=== PATIENT | female | born 2000 | race Caucasian/White ===

== ENCOUNTER 2020-01-12 23:21 | Outpatient (CLI) | payer MEDICAID ==
[~2020-01-12] VITALS: Ht 152.4 cm; Wt 83.6 kg
[~2020-01-12 23:21] MED LIST: PNT40TEC PO; POLY17PO23 PO; QUET100T PO; VENL150C PO
--- NOTE | 2020-01-12 23:30 | NUR ---
MANDY POLO presented to unit via W/C from friend's house/ED, accompanied by ED staff, with c/o PAIN,FLUID LEAKAGE. MANDY POLO weighed, gowned, voided, and to bed. EFHM and TOCO applied, VS taken. MANDY POLO oriented to bed controls, call light, TV, heat, and A/C controls.
[2020-01-13 00:08] LABS: CLARITY,URINE CLOUDY; COLOR,URINE DARK YELLOW
[2020-01-13 00:09] LABS: BILIRUBIN,URINE NEGATIVE (NEGATIVE); GLUCOSE, URINE (UA) NEGATIVE (NEGATIVE); KETONES,URINE NEGATIVE (NEGATIVE); LEUKOCYTE ESTERASE ,URINE TRACE (NEGATIVE); NITRITE,URINE POSITIVE (NEGATIVE); PROTEIN,URINE TRACE (NEGATIVE)
[2020-01-13 00:20] LABS: BACTERIA,URINE LARGE /HPF; WBC,URINE 0-2 /HPF
[2020-01-13] MEDS ORDERED: cefTRIAXone 1,000 MG/2.86 ml vial (IM ONLY) ONE (00:24)
[2020-01-13] MEDS ORDERED: ACETAMINOPHEN 500 MG TAB (TYLENOL) PO ONE (00:30)
[2020-01-13] MEDS ORDERED: LIDOCAINE 1% INJ 20 ML 20 ML VIAL INJ ONE (00:30)
[2020-01-13] MEDS ORDERED: cefTRIAXone 250 MG/ML vial (IM ONLY) IM ONE (00:30)
[2020-01-13] MEDS ORDERED: cefTRIAXone 1,000 MG IV (ROCEPHIN) VIAL ONE (00:41)
[2020-01-13 00:48] LABS: AMPHETAMINE SCREEN, URINE NEGATIVE (NEGATIVE); BARBITURATE SCREEN URINE NEGATIVE (NEGATIVE); BENZODIAZEPINES SCREEN URINE NEGATIVE (NEGATIVE); CANNABINOID SCREEN, URINE NEGATIVE (NEGATIVE); COCAINE SCREEN URINE NEGATIVE (NEGATIVE); METHADONE STAT NEGATIVE (NEGATIVE); METHAMPHETAMINE SCREEN URINE S NEGATIVE (NEGATIVE); OPIATE SCREEN URINE NEGATIVE (NEGATIVE); OXYCODONE STAT NEGATIVE (NEGATIVE); PROPOXYPHENE STAT NEGATIVE (NEGATIVE); TRICYCLIC ANTIDEPRESSANTS SCRE NEGATIVE (NEGATIVE)
[2020-01-13 01:33] VITALS: BP 117/65
[2020-01-13] MEDS ORDERED: NITR-65 PO (01:36)
--- NOTE | 2020-01-13 01:42 | NUR ---
Discharge instructions discussed with pt. Pt denies any questions or concerns. Signature sheet signed. Pt ambulating off unit to private vehicle. No signs of distress noted.
--- NOTE | 2020-01-13 08:32 | Physician Query-Final Dx ---
Clinic Account Progress/Dx Physician Query: Please give diagnosis Please include # weeks gestation Date of Service January 12, 2020 at 23:21 NOAM ESCALERA January 13, 2020 08:32
== END 2020-01-13 01:42 | disposition home or self-care (01) ==
LOC: WSo 23:21 → LDRP 23:22 → WSo 01-13 01:42
PROVIDERS: ATTEND Obstetrics & Gynecology
DX: O26.893 Other specified pregnancy related conditions, third trimester (principal); R10.9 Unspecified abdominal pain; Z3A.42 42 weeks gestation of pregnancy
CPT/HCPCS: 80306; 81000; 87077; 87088; 87186; 96372; 99213

== ENCOUNTER 2020-05-31 20:55 | Emergency (ER) | payer MEDICAID ==
[~2020-05-31] VITALS: Ht 152 cm; Wt 70.0 kg
[~2020-05-31 20:55] MED LIST changes: +NITR-65 PO
[2020-05-31 21:11] VITALS: BP 152/92
--- NOTE | 2020-05-31 22:05 | ED EENT ---
History of Present Illness General Chief Complaint: Oral/Throat Problems Stated Complaint: DIFFICULTY SWALLOWING Nursing Triage Note: Pt here with sore throat and sinus congestion; onset today. Source: patient Exam Limitations: no limitations History of Present Illness Date Seen by Provider: May 31, 2020 Time Seen by Provider: 21:20 Initial Comments This 19-year-old young lady presents to the emergency room with sore throat and pain with swallowing. Other symptoms include congestion and stuffy ears. Symptoms started today. She denies cough or shortness of breath. She has had no GI symptoms. 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 She has mild headache. Allergies and Home Medications Allergies Coded Allergies: Penicillins (Verified Allergy, Unknown, 01/12/20) fentanyl (Verified Allergy, Unknown, 01/12/20) latex (Verified Allergy, Unknown, 01/12/20) paroxetine (Verified Allergy, Unknown, 10/05/15) promethazine (Verified Allergy, Unknown, 01/12/20) Home Medications Nitrofurantoin Monohyd/M-Cryst 100 Mg Capsule, 1 TAB PO BID Prescribed by: CONCEPCION JUDGE on 01/13/20 0136 Patient Home Medication List Home Medication List Reviewed: Yes Review of Systems Review of Systems Constitutional: no symptoms reported Eyes: No Symptoms Reported Ears: See HPI Nose: see HPI Mouth: no symptoms reported Throat: see HPI Respiratory: no symptoms reported Cardiovascular: no symptoms reported Gastrointestinal: no symptoms reported : No Musculoskeletal: no symptoms reported Skin: no symptoms reported Neurological: No Symptoms Reported Hematologic/Lymphatic: No Symptoms Reported Past Kzbnrra-Uggdak-Cpecul Hx Past Med/Social Hx: Reviewed Nursing Past Med/Soc Hx Patient Social History Alcohol Use: Occasionally Uses Recreational Drug Use: No Smoking Status: Current Everyday Smoker Type Used: Cigarettes 2nd Hand Smoke Exposure: No Recent Foreign Travel: No Contact w/Someone Who Travel: No Recent Infectious Disease Expo: No Immunizations Up To Date Tetanus Booster (TDap): Less than 5yrs PED Vaccines UTD: Yes Past Medical History Surgeries: No Respiratory: Yes Asthma Cardiac: No Neurological: No : No Reproductive Disorders: No Female Reproductive Disorders: Denies Sexually Transmitted Disease: No HIV/AIDS: No Genitourinary: Yes UTI (peds) Gastrointestinal: No Musculoskeletal: No Endocrine: No Cancer: No Psychosocial: Yes (CUTTING) Anxiety, Depression Integumentary: No Blood Disorders: No Adverse Reaction/Blood Tranf: No Family Medical History Alcoholism 03 MOTHER GPA Cancer GMA History of drug abuse 03 MOTHER Kidney disease GMA Psychotic disorder 03 MOTHER Physical Exam Vital Signs Vital Signs - First Documented 05/31/20 21:11 Temp 37.6 Pulse 110 Resp 18 B/P (MAP) 152/92 (112) Pulse Ox 100 O2 Delivery Room Air Height, Weight, BMI Height: 5'3" Weight: 148lbs. 8.0oz. [id number]; 30.00 BMI Method:Stated General Appearance: WD/WN, no apparent distress Eyes: bilateral eye normal inspection, bilateral eye PERRL, bilateral eye EOMI Ears: bilateral ear auricle normal, bilateral ear canal normal, bilateral ear TM normal Nose: normal inspection Mouth/Throat: normal mouth inspection, other (pharyngeal erythema and hyperemia without exudate. Minimal swelling.) Neck: lymphadenopathy (R), lymphadenopathy (L), tender lateral Cardiovascular: no edema, no murmur, tachycardia Respiratory: lungs clear, normal breath sounds, no respiratory distress, no accessory muscle use Gastrointestinal: normal bowel sounds, non tender, soft Neurologic/Psychiatric: funeral planner II-XII nml as tested, no motor/sensory deficits, alert, normal mood/affect, oriented x 3 Skin: normal color, warm/dry Progress/Results/Core Measures Results/Orders Lab Results Laboratory Tests Test 05/31/20 21:19 Range/Units Group A Streptococcus Screen NEGATIVE NEGATIVE Micro Results Microbiology 05/31/20 Influenza Types A,B Antigen (FABY) - Final, Complete My Orders Orders - EVITA CROCKER MD Rapid Strep A Screen (05/31/20 21:28) Influenza A And B Antigens (05/31/20 21:28) Coronavirus Sars-Cov-2 So 2018 (05/31/20 21:28) Vital Signs/I&O Blood Pressure Mean: 112 Progress Progress Note : Progress Note Rapid flu and strep tests were negative. These are followed by a COVID-19 test. Quarantine precautions were reviewed. Treatment of the sore throat pain was discussed. Departure Impression Primary Impression: Pharyngitis Qualified Codes: J02.9 - Acute pharyngitis, unspecified Additional Impression: Person under investigation for COVID-19 Disposition: 01 HOME, SELF-CARE Condition: Stable Departure-Patient Inst. Decision time for Depature: 22:01 Referrals: NO,LOCAL PHYSICIAN (PCP/Family) Primary Care Physician Patient Instructions: COVID19, Sore Throat in Adults Add. Discharge Instructions: Drink plenty of clear liquids. Consume foods with smooth texture that are not irritating to the throat. You may take Tylenol (acetaminophen) up to 1000 mg every 6 hours as needed and/or ibuprofen up to 600 mg every 6 hours as needed for pain. You and your close contact should remain in quarantine for the duration of the time UA for COVID-19 results to return. If you do have a positive COVID-19 test, please stay in quarantine and await instructions from the health department. Call or return to care if you have worsening symptoms. All discharge instructions reviewed with patient and/or family. Voiced understanding. Work/School Note: Work Release Form Date Seen in the Emergency Department: May 31, 2020 Return to Work: Jun 04, 2020 Other Restrictions Listed Below: Return when free of fever or significant symptoms for 72 hours if COVID neg Restrictions: If COVID positive, remain in quarantine until cleared by health department. EVITA CROCKER MD May 31, 2020 22:04
== END 2020-05-31 22:22 | disposition home or self-care (01) ==
LOC: EDUNIT# 20:55 → ER 20:56
DX: J02.9 Acute pharyngitis, unspecified (principal); F17.210 Nicotine dependence, cigarettes, uncomplicated; Z80.8 Family history of malignant neoplasm of other organs or systems; Z88.0 Allergy status to penicillin; Z91.040 Latex allergy status; Z88.8 Allergy status to other drugs, medicaments and biological substances; Z20.828 Contact with and (suspected) exposure to other viral communicable diseases
CPT/HCPCS: 87430; 87804; 99282; U0002; 87635

== ENCOUNTER 2020-06-01 22:05 | Emergency (ER) | payer MEDICAID ==
[~2020-06-01] VITALS: Ht 152 cm; Wt 65.0 kg
--- NOTE | 2020-06-01 22:27 | NUR ---
Pt here with sore throat, fever, and feeling sob. States she was seen here last night for sore throat and swabbed for strep, flu, and Covid. Pt reports that her strep and flu were negative but her results for Covid haven't come back yet. Pt states that she feels like she can't swallow her own spit. Pt last took Tylenol and Ibprofen together at 1800 hrs. Pt high temp today 102
[2020-06-01] MEDS ORDERED: LACTATED RINGERS 1,000 ML IV ONE (23:11)
[2020-06-01] MEDS ORDERED: ONDANSETRON 4 MG/2 ML (SDV) Z0FRAN IVP ONE (23:15)
[2020-06-01] MEDS ORDERED: HYDROcodone/APAP 5 MG/325 MG (LORTAB) TAB PO ONE (23:15)
[2020-06-01 23:34] LABS: BASOPHILS % (AUTO) 0 % (0-10); BUN/CREATININE RATIO 8; CALCIUM 9.3 MG/DL (8.5-10.1); CARBON DIOXIDE 22 MMOL/L (21-32); CHLORIDE 104 MMOL/L (98-107); CREATININE SERUM 0.71 MG/DL (0.60-1.30); EOSINOPHILS % (AUTO) 0 % (0-10); GFR ESTIMATED > 60; GLUCOSE 100 MG/DL (70-105); HEMATOCRIT 36 % (35-52); HEMOGLOBIN 11.3 g/dL (11.5-16.0); LYMPHOCYTES # (AUTO) 2.4 10^3/uL (1.0-4.0); LYMPHOCYTES % (AUTO) 30 % (12-44); MEAN CORPUSCULAR HEMOGLOBIN 27 pg (25-34); MEAN CORPUSCULAR HGB CONC 32 g/dL (32-36); MEAN CORPUSCULAR VOLUME 85 fL (80-99); MEAN PLATELET VOLUME 9.7 fL (9.0-12.2); MONOCYTES # (AUTO) 0.5 10^3/uL (0.0-1.0); MONOCYTES % (AUTO) 6 % (0-12); NEUTROPHILS % (AUTO) 63 % (42-75); PLATELET COUNT 306 10^3/uL (130-400); SODIUM 138 MMOL/L (135-145)
--- NOTE | 2020-06-01 23:39 | ED Cough/URI ---
General Chief Complaint: Fever-Adult/Adol Stated Complaint: FEVER/HEADACHE/SORE THROAT Nursing Triage Note: Pt here with fever uncontrolled by tylenol and ibuprofen; states she was seen here last night for sore throat and swabbed for covid, flu, and strep. She does not have the covid results yet. Sepsis Screen: Possible Severe Sepsis Risk Source: patient Exam Limitations: no limitations History of Present Illness Date Seen by Provider: Jun 01, 2020 Time Seen by Provider: 23:05 Initial Comments Here with complaint of worsening sore throat since yesterday. Seen yesterday for similar symptoms and was tested for strep and COVID. Strep was negative and COVID is still pending. States that the pain is worse today and hurts to swallow. She did take ibuprofen and Tylenol at about 6 PM and it has not helped. She took 2 extra strength Tylenol and 4 or 5 ibuprofen. Did have an episode of vomiting today with taking medication [id number] to decrease pain in her throat (topical agent). Main complaint is the sore throat but has started fever today as well as body aches and appears to be more COVID like with time. She is unsure of contact with COVID-19. Timing/Duration: yesterday, getting worse Severity/Quality: no cough Prior Episodes/Possible Cause: no prior episodes Modifying Factors: Improves With Other (not much better with rlax-nmt-wryurnn medication.) Associated Symptoms: fever/chills, muscle aches, nasal congestion, nasal drainage, sore throat Allergies and Home Medications Allergies Coded Allergies: Penicillins (Verified Allergy, Unknown, 01/12/20) fentanyl (Verified Allergy, Unknown, 01/12/20) latex (Verified Allergy, Unknown, 01/12/20) paroxetine (Verified Allergy, Unknown, 10/05/15) promethazine (Verified Allergy, Unknown, 01/12/20) Home Medications Nitrofurantoin Monohyd/M-Cryst 100 Mg Capsule, 1 TAB PO BID Prescribed by: CONCEPCION JUDGE on 01/13/20 7639 Patient Home Medication List Home Medication List Reviewed: Yes Review of Systems Review of Systems Constitutional: No chills, No fever EENTM: see HPI, throat pain Respiratory: No cough; dyspnea on exertion, hemoptysis Cardiovascular: No chest pain, No edema Gastrointestinal: No abdominal pain; nausea, vomiting Genitourinary: No discharge, No dysuria : No Musculoskeletal: No back pain Skin: no symptoms reported Psychiatric/Neurological: No Symptoms Reported All Other Systems Reviewed Negative Unless Noted: Yes Past Oejzzdz-Ypxfnd-Vzslqs Hx Past Med/Social Hx: Reviewed Nursing Past Med/Soc Hx Patient Social History Alcohol Use: Denies Use Recreational Drug Use: No Smoking Status: Current Everyday Smoker Type Used: Cigarettes 2nd Hand Smoke Exposure: No Recent Foreign Travel: No Contact w/Someone Who Travel: No Recent Infectious Disease Expo: No Immunizations Up To Date Tetanus Booster (TDap): Less than 5yrs PED Vaccines UTD: Yes Past Medical History Surgeries: No Respiratory: Yes Asthma Cardiac: No Neurological: No Last Menstrual Period: May 25, 2020 Reproductive Disorders: No Female Reproductive Disorders: Denies Sexually Transmitted Disease: No HIV/AIDS: No Genitourinary: Yes UTI (peds) Gastrointestinal: No Musculoskeletal: No Endocrine: No Cancer: No Psychosocial: Yes (CUTTING) Anxiety, Depression Integumentary: No Blood Disorders: No Adverse Reaction/Blood Tranf: No Family Medical History Reviewed Nursing Family Hx Alcoholism 03 MOTHER GPA Cancer GMA History of drug abuse 03 MOTHER Kidney disease GMA Psychotic disorder 03 MOTHER Physical Exam Vital Signs - First Documented 06/01/20 22:23 Temp 38.2 Pulse 123 Resp 20 B/P (MAP) 118/81 (93) Pulse Ox 100 O2 Delivery Room Air Capillary Refill : Less Than 3 Seconds Height: 5'3" Weight: 148lbs. 8.0oz. 67.531048bk; 28.00 BMI Method:Stated General Appearance: WD/WN, no apparent distress HEENT: pharyngeal erythema; No tonsillar exudate Neck: full range of motion, supple, lymphadenopathy (R), lymphadenopathy (L) Respiratory: lungs clear, normal breath sounds Cardiovascular: no murmur, tachycardia Gastrointestinal: non tender, soft Extremities: non-tender, normal inspection, no pedal edema, no calf tenderness, normal capillary refill Neurologic/Psychiatric: alert, oriented x 3 Skin: normal color, warm/dry Progress/Results/Core Measures Suspected Sepsis Recent Fever Within 48 Hours: Yes Infection Criteria Present: Suspected New Infection New/Unexplained Altered Menta: No Sepsis Screen: Possible Severe Sepsis Risk SIRS Temperature: Pulse: 123 Respiratory Rate: 20 Laboratory Tests 06/01/20 22:31: White Blood Count 8.0 Blood Pressure 118 /81 Mean: 93 Laboratory Tests 06/01/20 22:31: Creatinine 0.71, Platelet Count 306 Results/Orders Lab Results Laboratory Tests Test 06/01/20 22:31 Range/Units White Blood Count 8.0 4.3-11.0 10^3/uL Red Blood Count 4.20 3.80-5.11 10^6/uL Hemoglobin 11.3 L 11.5-16.0 g/dL Hematocrit 36 35-52 % Mean Corpuscular Volume 85 80-99 fL Mean Corpuscular Hemoglobin 27 25-34 pg Mean Corpuscular Hemoglobin Concent 32 32-36 g/dL Red Cell Distribution Width 15.1 H 10.0-14.5 % Platelet Count 306 130-400 10^3/uL Mean Platelet Volume 9.7 9.0-12.2 fL Immature Granulocyte % (Auto) 1 % Neutrophils (%) (Auto) 63 42-75 % Lymphocytes (%) (Auto) 30 12-44 % Monocytes (%) (Auto) 6 0-12 % Eosinophils (%) (Auto) 0 0-10 % Basophils (%) (Auto) 0 0-10 % Neutrophils # (Auto) 5.0 1.8-7.8 10^3/uL Lymphocytes # (Auto) 2.4 1.0-4.0 10^3/uL Monocytes # (Auto) 0.5 0.0-1.0 10^3/uL Eosinophils # (Auto) 0.0 0.0-0.3 10^3/uL Basophils # (Auto) 0.0 0.0-0.1 10^3/uL Immature Granulocyte # (Auto) 0.0 0.0-0.1 10^3/uL Sodium Level 138 135-145 MMOL/L Potassium Level 4.0 3.6-5.0 MMOL/L Chloride Level 104 98-107 MMOL/L Carbon Dioxide Level 22 21-32 MMOL/L Anion Gap 12 5-14 MMOL/L Blood Urea Nitrogen 6 L 7-18 MG/DL Creatinine 0.71 0.60-1.30 MG/DL Estimat Glomerular Filtration Rate > 60 BUN/Creatinine Ratio 8 Glucose Level 100 70-105 MG/DL Calcium Level 9.3 8.5-10.1 MG/DL My Orders Orders - NETTIE BOLES MD Basic Metabolic Panel (06/01/20 23:11) Cbc With Automated Diff (06/01/20 23:11) Ed Iv/Invasive Line Start (06/01/20 23:11) Lactated Ringers (Lr 1000 Ml Iv Solution (06/01/20 23:11) Hydrocodone/Apap 5/325 Tablet (Lortab 5 (06/01/20 23:15) Dexamethasone Injection (Decadron Inje (06/01/20 23:15) Ondansetron Injection (Zofran Injectio (06/01/20 23:15) Medications Given in ED Current Medications Medications Dose Ordered Sig/Vitaliy Route Start Time Stop Time Status Last Admin Dose Admin Acetaminophen/ Hydrocodone Bitart 1 tab ONCE ONCE PO 06/01/20 23:15 06/01/20 23:16 DC 06/01/20 23:20 1 TAB Dexamethasone Sodium Phosphate 10 mg ONCE ONCE IV 06/01/20 23:15 06/01/20 23:16 DC 06/01/20 23:23 10 MG Lactated Ringer's 1,000 ml @ 0 mls/hr Q0M ONCE IV 06/01/20 23:11 06/01/20 23:14 DC 06/01/20 23:20 1,000 MLS/HR Ondansetron HCl 4 mg ONCE ONCE IVP 06/01/20 23:15 06/01/20 23:16 DC 06/01/20 23:23 4 MG Vital Signs/I&O 06/01/20 22:23 Temp 38.2 Pulse 123 Resp 20 B/P (MAP) 118/81 (93) Pulse Ox 100 O2 Delivery Room Air Capillary Refill : Less Than 3 Seconds Blood Pressure Mean: 93 Progress Note : Progress Note Seen and evaluated. IV, labs, LR 1 L bolus due to not being able to drink well over the last 24 hours, hydrocodone 5/325 one tab by mouth for pain, Decadron 10 mg IV and Zofran 4 mg IV ordered. Monitor patient. 0112: Patient not much better but feels like she can go home. Due to the pain I will write a small prescription for Tylenol 3 to allow time for improvement after steroid dose. Labs are not significantly abnormal and coded tests from yesterday still pending. Still highly likely that she has COVID-19 and patient was informed of this. Discharged home with return precautions. Patient verbalize understanding instructions and agreement with plan. Departure Impression Primary Impression: Pharyngitis Qualified Codes: J02.9 - Acute pharyngitis, unspecified Additional Impressions: Person under investigation for COVID-19 Upper respiratory tract infection Qualified Codes: J06.9 - Acute upper respiratory infection, unspecified Disposition: 01 HOME, SELF-CARE Condition: Stable Departure-Patient Inst. Decision time for Depature: 01:14 Referrals: NO,LOCAL PHYSICIAN (PCP/Family) Primary Care Physician Patient Instructions: Coronavirus Disease 2019 (COVID-19) (DC), Viral Upper Respiratory Infection, Adult (DC), Viral Pharyngitis (DC) Add. Discharge Instructions: All discharge instructions reviewed with patient and/or family. Voiced understanding. Drink plenty of fluids and get plenty of rest. You will need to remain on quarantine until test results are noted. If they are negative, you will need to be isolated for 3 days after symptoms resolve. If they are positive, the health department will call you and direct quarantine timeframe. You may take ibuprofen 600 mg every 8 hours as needed for fever or pain. You may take Tyleno l/acetaminophen 1000 mg every 8 hours as needed for fever.. Return for worse pain, fever, vomiting, weakness, breathing problems or other concerns as needed. Scripts Acetaminophen with Codeine (Acetaminophen-Cod #3 Tablet) 1 Each Tablet 1 EACH PO Q6H PRN for PAIN-MODERATE (5-7) for 7 Days, #12 TAB 0 Refills Prov: NETTIE BOLES MD 06/02/20 NETTIE BOLES MD Jun 01, 2020 23:38
[2020-06-02] MEDS ORDERED: ACET1TAB43 PO (01:16)
[2020-06-02 01:38] VITALS: BP 118/81
== END 2020-06-02 01:39 | disposition home or self-care (01) ==
LOC: EDUNIT# 22:05 → ER 22:06
DX: J02.9 Acute pharyngitis, unspecified (principal); J06.9 Acute upper respiratory infection, unspecified; F17.210 Nicotine dependence, cigarettes, uncomplicated; Z80.9 Family history of malignant neoplasm, unspecified; Z88.0 Allergy status to penicillin; Z91.040 Latex allergy status; Z88.8 Allergy status to other drugs, medicaments and biological substances; Z20.828 Contact with and (suspected) exposure to other viral communicable diseases
CPT/HCPCS: 36415; 80048; 85025; 96361; 96374; 96375

== ENCOUNTER 2022-05-10 07:21 | Inpatient (IN) | payer MEDICAID ==
[~2022-05-10] VITALS: Ht 152 cm; Wt 54.0 kg
[~2022-05-10 07:21] MED LIST changes: +ACET-11 PO; -VENL150C PO; +VENL150C3 PO
[2022-05-10] MEDS ORDERED: morphine INJ 10 MG/ML 1ML (SYR OR VIAL) IVP STA ×2 (07:48→09:48)
--- NOTE | 2022-05-10 07:52 | ED Abdominal Pain ---
General Chief Complaint: Abdominal/GI Problems Stated Complaint: ABD PAIN Nursing Triage Note: PT STATES ABD PAIN FOR 2 DAYS, FEVER, SWEATING Source of Information: Patient Exam Limitations: No Limitations History of Present Illness Date Seen by Provider: May 10, 2022 Time Seen by Provider: 07:40 Initial Comments Patient is a 21-year-old female who presents to the emergency department today with a chief complaint of right upper quadrant and diffuse abdominal pain. She states onset of pain 2 days ago. She has been alternating Tylenol and ibuprofen. Her last dose was last night. She has had nausea and vomiting with limited oral intake. She states she has had some dysuria with cloudy urine for the last couple of days. She drank cranberry juice prior to arrival. She states that she has had fever. Movement makes the pain worse. Nothing makes it any better. She has had 3 C-sections, and laparoscopic surgery for endometriosis. She states this pain is different than her endometriosis pain. She still has her gallbladder and her appendix. Last menstrual period was "sometime last month". She denies a normal vaginal discharge. No black or bloody stools. Rates the pain a "10". All other review of systems reviewed and negative except as stated Timing/Duration: 1-2 Days Severity/Quality: Severe, Sharp Location: RUQ Radiation: No Radiation Activities at Onset: None Modifying Factors: Worsens With Movement Associated Symptoms: Diaphoresis, Nausea/Vomiting, Other (palpations) Allergies and Home Medications Allergies Coded Allergies: Penicillins (Verified Allergy, Unknown, 01/12/20) fentanyl (Verified Allergy, Unknown, 01/12/20) latex (Verified Allergy, Unknown, 01/12/20) paroxetine (Verified Allergy, Unknown, 10/05/15) promethazine (Verified Allergy, Unknown, 01/12/20) Patient Home Medication List Home Medication List Reviewed: Yes Acetaminophen with Codeine (Acetaminophen-Cod #3 Tablet) 1 Each Tablet, 1 EACH PO Q6H PRN for PAIN-MODERATE (5-7) Prescribed by: NETTIE BOLES on 06/02/20 0117 Nitrofurantoin Monohyd/M-Cryst (Macrobid 100 mg Capsule) 100 Mg Capsule, 1 TAB PO BID Prescribed by: CONCEPCION JUDGE on 01/13/20 0136 Review of Systems Review of Systems Constitutional: see HPI EENTM: No Symptoms Reported Respiratory: No Symptoms Reported Cardiovascular: Palpitations Gastrointestinal: No Symptoms Reported, Abdominal Pain, Nausea, Vomiting Genitourinary: Burning, Other (cloudy urine) Musculoskeletal: no symptoms reported Skin: other (diaphoresis) Psychiatric/Neurological: Anxiety All Other Systems Reviewed Negative Unless Noted: Yes Past Jzgdfke-Smiadq-Lzmydc Hx Patient Social History Tobacco Use?: Yes Substance use?: No Alcohol Use?: No Immunizations Up To Date Tetanus Booster (TDap): Less than 5yrs PED Vaccines UTD: Yes Past Medical History Surgery/Hospitalization HX: 3 C SECTIONS, 3 FOR ENDOMETREOSIS Surgeries: No Respiratory: Yes Asthma Cardiac: No Neurological: No Reproductive Disorders: No Female Reproductive Disorders: Denies Sexually Transmitted Disease: No HIV/AIDS: No Genitourinary: Yes UTI (peds) Gastrointestinal: No Musculoskeletal: No Endocrine: No Cancer: No Psychosocial: Yes (CUTTING) Anxiety, Depression Integumentary: No Blood Disorders: No Adverse Reaction/Blood Tranf: No Family Medical History Alcoholism 03 MOTHER GPA Cancer GMA History of drug abuse 03 MOTHER Kidney disease GMA Psychotic disorder 03 MOTHER Physical Exam Vital Signs Vital Signs - First Documented 05/10/22 07:44 Temp 37.7 Pulse 135 Resp 22 B/P (MAP) 132/72 (92) Pulse Ox 100 O2 Delivery Room Air Capillary Refill : Less Than 3 Seconds Height/Weight/BMI Height: 5'3" Weight: 148lbs. 8.0oz. [id number]; 23.00 BMI Method:Stated General Appearance: WD/WN, moderate distress HEENT: PERRL/EOMI Neck: normal inspection Respiratory: lungs clear, normal breath sounds, no respiratory distress, no accessory muscle use Cardiovascular: regular rate, rhythm, tachycardia Gastrointestinal: abnormal bowel sounds (hypoactive), guarding, tenderness, other (very tender RUQ) Genital/Rectal: tenderness (bilateral adnexal, worse left no significant CMT) Extremities: normal range of motion, non-tender, normal inspection Neurologic/Psychiatric: alert, oriented x 3, depressed affect Skin: normal color, diaphoresis Progress/Results/Core Measures Results/Orders Lab Results Laboratory Tests Test 05/10/22 07:40 05/10/22 08:22 Range/Units White Blood Count 13.3 H 4.3-11.0 10^3/uL Red Blood Count 4.45 3.80-5.11 10^6/uL Hemoglobin 13.8 11.5-16.0 g/dL Hematocrit 42 35-52 % Mean Corpuscular Volume 95 80-99 fL Mean Corpuscular Hemoglobin 31 25-34 pg Mean Corpuscular Hemoglobin Concent 33 32-36 g/dL Red Cell Distribution Width 12.3 10.0-14.5 % Platelet Count 285 130-400 10^3/uL Mean Platelet Volume 9.3 9.0-12.2 fL Immature Granulocyte % (Auto) 1 % Neutrophils (%) (Auto) 86 H 42-75 % Lymphocytes (%) (Auto) 7 L 12-44 % Monocytes (%) (Auto) 6 0-12 % Eosinophils (%) (Auto) 0 0-10 % Basophils (%) (Auto) 0 0-10 % Neutrophils # (Auto) 11.5 H 1.8-7.8 10^3/uL Lymphocytes # (Auto) 0.9 L 1.0-4.0 10^3/uL Monocytes # (Auto) 0.8 0.0-1.0 10^3/uL Eosinophils # (Auto) 0.0 0.0-0.3 10^3/uL Basophils # (Auto) 0.0 0.0-0.1 10^3/uL Immature Granulocyte # (Auto) 0.1 0.0-0.1 10^3/uL Neutrophils % (Manual) 90 % Lymphocytes % (Manual) 3 % Monocytes % (Manual) 6 % Band Neutrophils 1 % Blood Morphology Comment NORMAL Sodium Level 135 135-145 MMOL/L Potassium Level 4.0 3.6-5.0 MMOL/L Chloride Level 98 98-107 MMOL/L Carbon Dioxide Level 23 21-32 MMOL/L Anion Gap 14 5-14 MMOL/L Blood Urea Nitrogen 4 L 7-18 MG/DL Creatinine 0.81 0.60-1.30 MG/DL Estimat Glomerular Filtration Rate 105 BUN/Creatinine Ratio 5 Glucose Level 138 H 70-105 MG/DL Calcium Level 9.7 8.5-10.1 MG/DL Corrected Calcium 9.8 8.5-10.1 MG/DL Total Bilirubin 0.5 0.1-1.0 MG/DL Aspartate Amino Transf (AST/SGOT) 19 5-34 U/L Alanine Aminotransferase (ALT/SGPT) 20 0-55 U/L Alkaline Phosphatase 93 40-136 U/L Total Protein 7.9 6.4-8.2 GM/DL Albumin 3.9 3.2-4.5 GM/DL Lipase 15 8-78 U/L Serum Test, Qualitative NEGATIVE NEGATIVE Urine Color YELLOW Urine Clarity SL CLOUDY Urine pH 6.0 5-9 Urine Specific Storden 1.015 L 1.016-1.022 Urine Protein NEGATIVE NEGATIVE Urine Glucose (UA) NEGATIVE NEGATIVE Urine Ketones NEGATIVE NEGATIVE Urine Nitrite POSITIVE H NEGATIVE Urine Bilirubin NEGATIVE NEGATIVE Urine Urobilinogen 1.0 < = 1.0 MG/DL Urine Leukocyte Esterase TRACE H NEGATIVE Urine RBC (Auto) NEGATIVE NEGATIVE Urine RBC NONE /HPF Urine WBC 5-10 H /HPF Urine Squamous Epithelial Cells 2-5 /HPF Urine Crystals NONE /LPF Urine Bacteria LARGE H /HPF Urine Casts NONE /LPF Urine Mucus NEGATIVE /LPF Urine Culture Indicated YES My Orders Orders - LISA MORRISON MD Ed Iv/Invasive Line Start (05/10/22 07:47) Cbc With Automated Diff (05/10/22 07:47) Comprehensive Metabolic Panel (05/10/22 07:47) Lipase (05/10/22 07:47) Ua Culture If Indicated (05/10/22 07:47) Hcg,Qualitative Serum (05/10/22 07:47) Ns Iv 1000 Ml (Sodium Chloride 0.9%) (05/10/22 08:00) Morphine Injection (Morphine Injection (05/10/22 07:48) Ondansetron Injection (Zofran Injectio (05/10/22 08:00) Manual Differential (05/10/22 07:40) Ct Abdomen/Pelvis Wo (05/10/22 08:15) Urine Culture (05/10/22 08:22) Morphine Injection (Morphine Injection (05/10/22 09:48) Us Non Ob Pelvis Comp/Transvag (05/10/22 09:48) Ceftriaxone 1 Gm Pre-Mix (Rocephin 1 Gm (05/10/22 10:30) Neis Shamir Dna Urine Test (05/10/22 11:27) Chlamydia Trachomatis Urine (05/10/22 11:27) Ketorolac Injection (Toradol Injection) (05/10/22 11:45) Doxycycline Injection (Vibramycin Inject (05/10/22 12:00) Medications Given in ED Current Medications Medications Dose Ordered Sig/Vitaliy Route Start Time Stop Time Status Last Admin Dose Admin Ceftriaxone Sodium/Dextrose 50 ml @ 100 mls/hr ONCE ONCE IV 05/10/22 10:30 05/10/22 10:59 DC 05/10/22 10:49 100 MLS/HR Doxycycline Hyclate 100 mg/ Sodium Chloride 100 ml @ 100 mls/hr ONCE ONCE IV 05/10/22 12:00 05/10/22 12:59 05/10/22 12:00 100 MLS/HR Ketorolac Tromethamine 30 mg ONCE ONCE IVP 05/10/22 11:45 05/10/22 11:46 DC 05/10/22 11:48 30 MG Ondansetron HCl 8 mg ONCE ONCE IVP 05/10/22 08:00 05/10/22 08:01 DC 05/10/22 07:57 8 MG Vital Signs/I&O 05/10/22 05/10/22 05/10/22 05/10/22 07:44 07:57 10:41 11:48 Temp 37.7 37.7 37.7 37.7 Pulse 135 Resp 22 B/P (MAP) 132/72 (92) Pulse Ox 100 O2 Delivery Room Air Blood Pressure Mean: 92 Progress Progress Note : Time: 11:45 Progress Note Patient still in a significant amount of pain. Holding the right upper quadrant but tender diffusely. Bimanual examination done to assess the tenderness in the adnexa. She was tender bilaterally without really chandelier sign. Definitely more tender in the left adnexa. No purulence noted on the examination glove. We will have the patient self swab for trichomonas. Plan to talk to Dr. 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 Rocephin and doxycycline IV have been given. Case was discussed with both Dr. ARANGO and Dr. CAROLINA. We will put her on PID antibiotics, Rocephin, doxycycline and Flagyl. Morphine and Zofran for pain and nausea. Dr. CAROLINA will see in consultation. We will admit her to women services. Orders have been written. Fluids are written. Diagnostic Imaging Diagonstic Imaging: CT Comments [facility] [place], [place] NAME: MANDY POLO [facility] REC#: [id number] PT STATUS: REG ER : 2000 PHYSICIAN: LISA MORRISON MD ADMIT DATE: 05/10/22/ER Signed Date of Exam:05/10/22 CT ABDOMEN/PELVIS WO PROCEDURE: CT abdomen and pelvis without contrast. TECHNIQUE: Multiple contiguous axial images were obtained through the abdomen and pelvis without the use of intravenous contrast. Auto Exposure Controls were utilized during the CT exam to meet ALARA standards for radiation dose reduction. INDICATION: Right lower quadrant pain. Fever. Nausea. COMPARISON: 10/08/2013. FINDINGS: The heart is unremarkable. The lung bases are clear. The liver, spleen, pancreas, adrenal glands, and kidneys have a normal noncontrast CT appearance. The gallbladder is unremarkable. There is no pathologically enlarged mesenteric or retroperitoneal adenopathy. The bowel loops are nondilated. The appendix is visualized in the right lower quadrant and has a normal appearance. There is a moderate amount of stool in the colon with bowel wall thickening of the colon involving the ascending colon, descending colon, and rectosigmoid colon. There is no free air. No acute osseous abnormalities. Ureters and bladder are normal. A low-attenuation mass is seen in the left lower quadrant measuring 5.0 x 3.0 cm. Trace free fluid is seen in the pelvis. There is no free air, loculated collection, or adenopathy in the pelvis. IMPRESSION: 1. Hypoattenuating mass in the left lower quadrant measuring 5.0 x 3.0 cm, favored to represent an ovarian cyst. Consider pelvic ultrasound to further evaluate. 2. Scattered areas of wall thickening in the colon with a moderate amount of stool present. Findings are suggestive of colitis and constipation. No evidence of bowel obstruction. No free air. The appendix has a normal appearance. 3. Trace free fluid in the pelvis, likely physiologic. Dictated by: Dictated on workstation # [id number] Dict: 05/10/22 0847 Trans: 05/10/22 0900 [id number] Interpreted by: RAQUEL FONTANA DO Electronically signed by: RAQUEL FONTANA DO 05/10/22 0900 Diagonstic Imaging: Ultrasound Comments [facility] [place], [place] NAME: MANDY POLO [facility] REC#: [id number] PT STATUS: REG ER : 2000 PHYSICIAN: LISA MORRISON MD ADMIT DATE: 05/10/22/ER Draft Date of Exam:05/10/22 US NON OB PELVIS COMP/TRANSVAG PROCEDURE: US Non-ob pelvis comp/trans. TECHNIQUE: Multiple realtime grayscale images were obtained of the pelvis in various projections endovaginally. Transabdominal imaging was also performed. INDICATION: Evaluate possible ovarian cyst. COMPARISON: CT performed earlier the same date. FINDINGS: Transabdominal: The uterus and adnexa have a unremarkable transabdominal appearance. Transvaginal images were obtained for additional characterization. Transvaginal: The uterus is anteverted and measures 7.6 x 4.9 x 5.5 cm. The endometrial stripe measures 0.9 cm and has a normal appearance. The right ovary is well visualized measuring 3.4 x 1.5 x 2.8 cm and demonstrating normal color Doppler flow. The left ovary is well-visualized measuring 5.7 x 4.3 x 3.9 cm with normal color Doppler flow. There is a heterogeneous echogenic mass associated with the left ovary measuring 4.8 x 3.7 x 3.1 cm. A small amount of free fluid is seen in the pelvis. IMPRESSION: 1. Echogenic and heterogeneous mass associated with the left ovary measuring 4.8 x 3.7 x 3.1 cm. This is incompletely characterized on this exam. Recommend gynecologic consultation and if indicated pelvic MRI with and without contrast to further evaluate. 2. No evidence of ovarian torsion. 3. Small amount of free fluid in the pelvis. Dictated on workstation # [id number] Dict: 05/10/22 1115 Trans: 05/10/22 1122 Departure Communication (Admissions) Time/Spoke to Admitting Phy: 11:[address] Arango Time/Spoke to Consulting Phy: 11:[address] Carolina Impression Primary Impression: Abdominal pain Qualified Codes: R10.11 - Right upper quadrant pain Additional Impressions: PID (acute pelvic inflammatory disease) Colitis Disposition: ADMITTED INPATIENT Condition: Stable Admissions Decision to Admit Reason: Admit from ER (General) Decision to Admit/Date: May 10, 2022 Time/Decision to Admit Time: 11:48 Departure-Patient Inst. Referrals: NO,LOCAL PHYSICIAN (PCP/Family) Primary Care Physician LISA MORRISON MD May 10, 2022 07:52
[2022-05-10] MEDS ORDERED: NS IV 1000 ML 1,000 ML IV SCH (08:00)
[2022-05-10] MEDS ORDERED: ONDANSETRON 4 MG/2 ML (SDV) Z0FRAN IVP ONE (08:00)
[2022-05-10 08:04] LABS: BASOPHILS % (AUTO) 0 % (0-10); EOSINOPHILS % (AUTO) 0 % (0-10); HEMATOCRIT 42 % (35-52); HEMOGLOBIN 13.8 g/dL (11.5-16.0); LYMPHOCYTES # (AUTO) 0.9 10^3/uL (1.0-4.0); LYMPHOCYTES % (AUTO) 7 % (12-44); MEAN CORPUSCULAR HEMOGLOBIN 31 pg (25-34); MEAN CORPUSCULAR HGB CONC 33 g/dL (32-36); MEAN CORPUSCULAR VOLUME 95 fL (80-99); MEAN PLATELET VOLUME 9.3 fL (9.0-12.2); MONOCYTES # (AUTO) 0.8 10^3/uL (0.0-1.0); MONOCYTES % (AUTO) 6 % (0-12); NEUTROPHILS # (AUTO) 11.5 10^3/uL (1.8-7.8); NEUTROPHILS % (AUTO) 86 % (42-75); PLATELET COUNT 285 10^3/uL (130-400); WHITE BLOOD COUNT 13.3 10^3/uL (4.3-11.0)
[2022-05-10 08:05] LABS: ALBUMIN 3.9 GM/DL (3.2-4.5)
[2022-05-10 08:07] LABS: CALCIUM 9.7 MG/DL (8.5-10.1)
[2022-05-10 08:08] LABS: TOTAL PROTEIN 7.9 GM/DL (6.4-8.2)
[2022-05-10 08:10] LABS: BILIRUBIN,TOTAL 0.5 MG/DL (0.1-1.0)
[2022-05-10 08:12] LABS: CREATININE SERUM 0.81 MG/DL (0.60-1.30)
[2022-05-10 08:27] LABS: BAND NEUTROPHILS 1 %; LYMPHOCYTES % (MANUAL) 3 %; MONOCYTES % (MANUAL) 6 %; NEUTROPHILS % (MANUAL) 90 %; RBC MORPH NORMAL
[2022-05-10 08:34] LABS: BILIRUBIN,URINE NEGATIVE (NEGATIVE); CLARITY,URINE SL CLOUDY; COLOR,URINE YELLOW; GLUCOSE, URINE (UA) NEGATIVE (NEGATIVE); KETONES,URINE NEGATIVE (NEGATIVE); LEUKOCYTE ESTERASE ,URINE TRACE (NEGATIVE); NITRITE,URINE POSITIVE (NEGATIVE); PROTEIN,URINE NEGATIVE (NEGATIVE)
[2022-05-10 08:45] LABS: BACTERIA,URINE LARGE /HPF
--- NOTE | 2022-05-10 08:58 | Diagnostic Imaging Report ---
PROCEDURE: CT abdomen and pelvis without contrast. TECHNIQUE: Multiple contiguous axial images were obtained through the abdomen and pelvis without the use of intravenous contrast. Auto Exposure Controls were utilized during the CT exam to meet ALARA standards for radiation dose reduction. INDICATION: Right lower quadrant pain. Fever. Nausea. COMPARISON: 10/08/2013. FINDINGS: The heart is unremarkable. The lung bases are clear. The liver, spleen, pancreas, adrenal glands, and kidneys have a normal noncontrast CT appearance. The gallbladder is unremarkable. There is no pathologically enlarged mesenteric or retroperitoneal adenopathy. The bowel loops are nondilated. The appendix is visualized in the right lower quadrant and has a normal appearance. There is a moderate amount of stool in the colon with bowel wall thickening of the colon involving the ascending colon, descending colon, and rectosigmoid colon. There is no free air. No acute osseous abnormalities. Ureters and bladder are normal. A low-attenuation mass is seen in the left lower quadrant measuring 5.0 x 3.0 cm. Trace free fluid is seen in the pelvis. There is no free air, loculated collection, or adenopathy in the pelvis. IMPRESSION: 1. Hypoattenuating mass in the left lower quadrant measuring 5.0 x 3.0 cm, favored to represent an ovarian cyst. Consider pelvic ultrasound to further evaluate. 2. Scattered areas of wall thickening in the colon with a moderate amount of stool present. Findings are suggestive of colitis and constipation. No evidence of bowel obstruction. No free air. The appendix has a normal appearance. 3. Trace free fluid in the pelvis, likely physiologic. Dictated by: Dictated on workstation # [id number]
[2022-05-10] MEDS ORDERED: cefTRIAXone 1 GM PRE-MIX 50 ML IV ONE (10:30)
--- NOTE | 2022-05-10 11:22 | Diagnostic Imaging Report ---
PROCEDURE: US Non-ob pelvis comp/trans. TECHNIQUE: Multiple realtime grayscale images were obtained of the pelvis in various projections endovaginally. Transabdominal imaging was also performed. INDICATION: Evaluate possible ovarian cyst. COMPARISON: CT performed earlier the same date. FINDINGS: Transabdominal: The uterus and adnexa have a unremarkable transabdominal appearance. Transvaginal images were obtained for additional characterization. Transvaginal: The uterus is anteverted and measures 7.6 x 4.9 x 5.5 cm. The endometrial stripe measures 0.9 cm and has a normal appearance. The right ovary is well visualized measuring 3.4 x 1.5 x 2.8 cm and demonstrating normal color Doppler flow. The left ovary is well-visualized measuring 5.7 x 4.3 x 3.9 cm with normal color Doppler flow. There is a heterogeneous echogenic mass associated with the left ovary measuring 4.8 x 3.7 x 3.1 cm. A small amount of free fluid is seen in the pelvis. IMPRESSION: 1. Echogenic and heterogeneous mass associated with the left ovary measuring 4.8 x 3.7 x 3.1 cm. This is incompletely characterized on this exam. Recommend gynecologic consultation and if indicated pelvic MRI with and without contrast to further evaluate. 2. No evidence of ovarian torsion. 3. Small amount of free fluid in the pelvis. Dictated by: Dictated on workstation # [id number]
[2022-05-10] MEDS ORDERED: KETOROLAC 30 MG/ML VIAL IVP ONE (11:45)
[2022-05-10] MEDS ORDERED: DOXYCYCLINE INJECTION 100 MG in NS (IVPB) 100 ML IV ONE (12:00)
[2022-05-10] MEDS ORDERED: NICOTINE 14 MG (NICODERM) PATCH TD ONE (13:00)
[2022-05-10 13:15] VITALS: BP 120/56
[2022-05-10] MEDS ORDERED: MEPERIDINE (DEMEROL) INJ 100 MG/ML IM PRN (13:30)
[2022-05-10 13:42] LABS: AMPHETAMINE SCREEN, URINE POSITIVE (NEGATIVE); BARBITURATE SCREEN URINE NEGATIVE (NEGATIVE); BENZODIAZEPINES SCREEN URINE NEGATIVE (NEGATIVE); CANNABINOID SCREEN, URINE NEGATIVE (NEGATIVE); COCAINE SCREEN URINE NEGATIVE (NEGATIVE); METHADONE STAT NEGATIVE (NEGATIVE); OPIATE SCREEN URINE POSITIVE (NEGATIVE); OXYCODONE STAT NEGATIVE (NEGATIVE); PROPOXYPHENE STAT NEGATIVE (NEGATIVE); TRICYCLIC ANTIDEPRESSANTS SCRE NEGATIVE (NEGATIVE)
[2022-05-10] MEDS ORDERED: ONDANSETRON 4 MG/2 ML (SDV) Z0FRAN IVP PRN (13:45)
[2022-05-10] MEDS: D5 LR IV SOLUTION 1,000 ML IV SCH ×2 (14:00→21:48)
[2022-05-10] MEDS: metroNIDAZOLE 500MG/100ML IVPB 100 ML IV SCH (14:26)
--- NOTE | 2022-05-10 14:39 | History & Physical ---
History and Physical Date Seen by Provider: May 10, 2022 Time Seen by Provider: 13:30 This patient is a 21-year-old 4 para 3 3 ectopic 1 white female Who was admitted via the emergency department for severe abdominal pain. Patient relates to me that she began having pain 2 days ago that she was basically knocked out meaning that she was Extremely fatigued nauseated and in pain and basically sleeping for 2 days. Her pain she felt was tolerable primarily because she was sleeping for those 2 days. Today the pain seemed worse she was more awake and alert and she sought attention in the emergency department. Emergency department evaluation included a CBC that showed a white count mildly elevated at 13,000 with a normal hemoglobin and normal values otherwise. Her CMP was normal. She did have a CT of the abdomen that showed a mass in the left adnexa potentially an ovarian cyst. But the CT also showed areas throughout the bowel with wall thickening and edema that would be concerning for some degree of colitis or enteritis. Transvaginal ultrasound confirmed the finding adjacent to the left ovary and again was consistent potentially with an ovarian cyst. This patient does have a history of endometriosis which would raise the specter potentially of an endometrioma in that area as well. Patient relates to me that she does feel hungry although she is nauseated. She has not had any emesis since her problem started 2 days ago. Patient reports that she has a bowel movement every day her last bowel movement was yesterday. She has never had problems with diarrhea or constipation and has not had any of those symptoms associated with her current abdominal pain. Patient relates that the pain has not been aggravated or caused by eating or drinking. She does relate fairly complete loss of appetite for the past 2 days but that is returning today. Patient has asked if she could have something to eat and drink Patient has been treated with morphine in the emergency department but continues to progress pain 10 out of 10 diffusely in the abdomen.She does not localize the pain to any specific location at this point. She did indicate that initially it seemed that the pain was mostly right upper quadrant but now it is throughout the abdomen. Allergies are to penicillin/fentanyl/latex/paroxetine/promethazine Medications on admission were none Social history patient is single. She is unemployed. She had plans to start a new job at an establishment and [employer] tomorrow Patient does smoke but she has cut down to 1 cigarette a day at this point. She indicates that she has used marijuana in the past but denies any other drug use including methamphetamine/heroin/Cocaine Past surgical history patient had her tonsils removed in childhood she has had 3 C-sections she has had laparoscopy several times in the last 6 or 8 years for endometriosis Medical history is negative Family history is noncontributory Vital Signs Date Time Temp Pulse Resp B/P (MAP) Pulse Ox O2 Delivery O2 Flow Rate FiO2 05/10/22 11:48 37.7 05/10/22 10:41 37.7 05/10/22 07:57 37.7 05/10/22 07:44 37.7 135 22 132/72 (92) 100 Room Air Patient's vital signs are noted Laboratory Tests Test 05/10/22 07:40 05/10/22 08:22 Range/Units White Blood Count 13.3 H 4.3-11.0 10^3/uL Red Blood Count 4.45 3.80-5.11 10^6/uL Hemoglobin 13.8 11.5-16.0 g/dL Hematocrit 42 35-52 % Mean Corpuscular Volume 95 80-99 fL Mean Corpuscular Hemoglobin 31 25-34 pg Mean Corpuscular Hemoglobin Concent 33 32-36 g/dL Red Cell Distribution Width 12.3 10.0-14.5 % Platelet Count 285 130-400 10^3/uL Mean Platelet Volume 9.3 9.0-12.2 fL Immature Granulocyte % (Auto) 1 % Neutrophils (%) (Auto) 86 H 42-75 % Lymphocytes (%) (Auto) 7 L 12-44 % Monocytes (%) (Auto) 6 0-12 % Eosinophils (%) (Auto) 0 0-10 % Basophils (%) (Auto) 0 0-10 % Neutrophils # (Auto) 11.5 H 1.8-7.8 10^3/uL Lymphocytes # (Auto) 0.9 L 1.0-4.0 10^3/uL Monocytes # (Auto) 0.8 0.0-1.0 10^3/uL Eosinophils # (Auto) 0.0 0.0-0.3 10^3/uL Basophils # (Auto) 0.0 0.0-0.1 10^3/uL Immature Granulocyte # (Auto) 0.1 0.0-0.1 10^3/uL Neutrophils % (Manual) 90 % Lymphocytes % (Manual) 3 % Monocytes % (Manual) 6 % Band Neutrophils 1 % Blood Morphology Comment NORMAL Sodium Level 135 135-145 MMOL/L Potassium Level 4.0 3.6-5.0 MMOL/L Chloride Level 98 98-107 MMOL/L Carbon Dioxide Level 23 21-32 MMOL/L Anion Gap 14 5-14 MMOL/L Blood Urea Nitrogen 4 L 7-18 MG/DL Creatinine 0.81 0.60-1.30 MG/DL Estimat Glomerular Filtration Rate 105 BUN/Creatinine Ratio 5 Glucose Level 138 H 70-105 MG/DL Calcium Level 9.7 8.5-10.1 MG/DL Corrected Calcium 9.8 8.5-10.1 MG/DL Total Bilirubin 0.5 0.1-1.0 MG/DL Aspartate Amino Transf (AST/SGOT) 19 5-34 U/L Alanine Aminotransferase (ALT/SGPT) 20 0-55 U/L Alkaline Phosphatase 93 40-136 U/L Total Protein 7.9 6.4-8.2 GM/DL Albumin 3.9 3.2-4.5 GM/DL Lipase 15 8-78 U/L Serum Test, Qualitative NEGATIVE NEGATIVE Urine Color YELLOW Urine Clarity SL CLOUDY Urine pH 6.0 5-9 Urine Specific Kyle 1.015 L 1.016-1.022 Urine Protein NEGATIVE NEGATIVE Urine Glucose (UA) NEGATIVE NEGATIVE Urine Ketones NEGATIVE NEGATIVE Urine Nitrite POSITIVE H NEGATIVE Urine Bilirubin NEGATIVE NEGATIVE Urine Urobilinogen 1.0 < = 1.0 MG/DL Urine Leukocyte Esterase TRACE H NEGATIVE Urine RBC (Auto) NEGATIVE NEGATIVE Urine RBC NONE /HPF Urine WBC 5-10 H /HPF Urine Squamous Epithelial Cells 2-5 /HPF Urine Crystals NONE /LPF Urine Bacteria LARGE H /HPF Urine Casts NONE /LPF Urine Mucus NEGATIVE /LPF Urine Culture Indicated YES Urine Opiates Screen POSITIVE H NEGATIVE Urine Oxycodone Screen NEGATIVE NEGATIVE Urine Methadone Screen NEGATIVE NEGATIVE Urine Propoxyphene Screen NEGATIVE NEGATIVE Urine Barbiturates Screen NEGATIVE NEGATIVE Ur Tricyclic Antidepressants Screen NEGATIVE NEGATIVE Urine Phencyclidine Screen NEGATIVE NEGATIVE Urine Amphetamines Screen POSITIVE H NEGATIVE Urine Methamphetamines Screen POSITIVE H NEGATIVE Urine Benzodiazepines Screen NEGATIVE NEGATIVE Urine Cocaine Screen NEGATIVE NEGATIVE Urine Cannabinoids Screen NEGATIVE NEGATIVE Note is made of patient's lab work including positive result for amphetamine and methamphetamine HEENT exam is normal Neck is supple no lymphadenopathy no thyromegaly Abdomen is diffusely tender there is Voluntary guarding, some rigidity, rebound tenderness, tenderness throughout the abdomen. There is no psoas sign. There is no obturator sign. There is no area of the abdomen that is not tender on palpation Extremities show no clubbing or cyanosis. There is no Homans' sign. Assessment and plan Severe onset by patient's description of right upper quadrant pain progressing to diffuse abdominal pain. Evaluation in the emergency department demonstrated concern for an adnexal mass on the left. This was confirmed on CT and on ultrasound. CT also demonstrates bowel wall thickening consistent concerning for some degree of infection and inflammation Emergency department had started the patient on Rocephin for PID which would also like to cover urinary tract as it does appear she could have a urinary tract infection. In addition patient's son was treated with starting doxycycline presumably twice a day for 10 days Patient has been started on Flagyl on the recommendation of Dr. SEARS the general surgeon who has been consulted for evaluation of the patient secondary to her bowel findings and abdominal exam. My plan at this point is for continued supportive care, I would repeat a CBC this evening to assess for elevation further of her white count. We will keep her n.p.o. and await recommendations from Dr. SEARS for any further evaluation or management. At some point we will follow-up on the left adnexal mass depending on patient's resolution or progression of symptoms Abdominal pain/left adnexal mass Allergies and Home Medications Allergies Coded Allergies: Penicillins (Verified Allergy, Unknown, 01/12/20) fentanyl (Verified Allergy, Unknown, 01/12/20) latex (Verified Allergy, Unknown, 01/12/20) paroxetine (Verified Allergy, Unknown, 10/05/15) promethazine (Verified Allergy, Unknown, 01/12/20) Patient Home Medication List Home Medication List Reviewed: Yes Acetaminophen with Codeine (Acetaminophen-Cod #3 Tablet) 1 Each Tablet, 1 EACH PO Q6H PRN for PAIN-MODERATE (5-7) Prescribed by: NETTIE BOLES on 06/02/20 011 Nitrofurantoin Monohyd/M-Cryst (Macrobid 100 mg Capsule) 100 Mg Capsule, 1 TAB PO BID Prescribed by: CONCEPCION JUDGE on 01/13/20 0136 ABILIO YANCEY MD May 10, 2022 14:38
[2022-05-10 16:03] VITALS: BP 96/54
[2022-05-10 18:07] LABS: BASOPHILS % (AUTO) 0 % (0-10); EOSINOPHILS % (AUTO) 0 % (0-10); HEMATOCRIT 32 % (35-52); HEMOGLOBIN 10.5 g/dL (11.5-16.0); LYMPHOCYTES # (AUTO) 1.7 10^3/uL (1.0-4.0); LYMPHOCYTES % (AUTO) 12 % (12-44); MEAN CORPUSCULAR HEMOGLOBIN 31 pg (25-34); MEAN CORPUSCULAR HGB CONC 33 g/dL (32-36); MEAN CORPUSCULAR VOLUME 96 fL (80-99); MEAN PLATELET VOLUME 9.1 fL (9.0-12.2); MONOCYTES # (AUTO) 1.1 10^3/uL (0.0-1.0); MONOCYTES % (AUTO) 8 % (0-12); NEUTROPHILS # (AUTO) 11.1 10^3/uL (1.8-7.8); NEUTROPHILS % (AUTO) 79 % (42-75); PLATELET COUNT 194 10^3/uL (130-400)
[2022-05-10] MEDS: KETOROLAC 30 MG/ML VIAL IVP PRN (18:40)
[2022-05-10] MEDS: HYDROcodone/APAP 7.5 MG/325 MG (LORTAB, LORCET PLUS) TABLET PO PRN (18:40)
--- NOTE | 2022-05-10 18:44 | CONSULTATION REPORT ---
DATE OF SERVICE: 05/10/2022 ADMITTING PHYSICIAN: Dr. Syed Arango. HISTORY OF PRESENT ILLNESS: The patient is a 21-year-old female who presented to the Emergency Department with diffuse abdominal pain. She states that this began two days ago and worsened over time. She also had reported some nausea and did have an episode of vomiting. No hematemesis, no coffee ground emesis. She also reports that she has had dysuria during this timeframe as well as cloudy urine. She also does have a history of endometriosis and has undergone laparoscopy and endometrial ablation three times as well as three C-sections in the past. A CT scan as well as a transvaginal ultrasound were also performed, which did show an endometrioma of the left ovary measuring 4.8 x [address] scan was also performed, which did show some patchy areas of colonic inflammation consistent with colitis. Of note, she was also found to be positive for opiates as well as methamphetamine on urine drug screen. PAST MEDICAL HISTORY: Endometriosis, urinary tract infection, asthma, anxiety, depression. PAST SURGICAL HISTORY: Diagnostic laparoscopy and endometrial ablation x3, section x3. ALLERGIES: PENICILLIN, FENTANYL, LATEX, PAROXETINE, PROMETHAZINE. MEDICATIONS: Nitrofurantoin 100 mg b.i.d. Acetaminophen p.r.n. SOCIAL HISTORY: Positive smoke, negative alcohol. FAMILY HISTORY: Noncontributory. VITAL SIGNS: Temperature 37.0, blood pressure 96/54, pulse 91, respirations 16, pulse ox 99% on room air. REVIEW OF SYSTEMS: A well-nourished female currently guarded secondary to the abdominal pain. She is not experiencing any shortness of breath or difficulty breathing. No chest pain, palpitations, diaphoresis. Mild nausea, no vomiting since being admitted. She states that she did have a bowel movement today, which was normal in consistency. No diarrhea, no red blood per rectum, no dark tarry stools. No fever, chills, no recent inadvertent weight loss. All other review of systems negative. PHYSICAL EXAMINATION: CHEST: A few scattered wheezes bilaterally. HEART: Regular, no murmurs. EXTREMITIES: No lower extremity edema, negative Homans sign. HEENT: No scleral icterus or cervical lymphadenopathy. ABDOMEN: Soft. There is diffuse abdominal pain with voluntary guarding, no rebound. No hernias. SKIN: Warm, dry. LABORATORY DATA: WBC 13.3, hemoglobin 13.8, hematocrit 42, platelets 285. BUN 4, creatinine 0.81. Liver function enzymes normal. Urine toxicology screen positive for methamphetamine, amphetamine and opiates. ASSESSMENT AND PLAN: A 21-year-old female with history of endometriosis with the findings of an endometrioma of the left ovary as well as patchy colitis of the colon. We feel that the colitis is most likely secondary to low flow states and vasoconstriction from methamphetamine use and we will proceed with conservative management with bowel rest, clear liquid diet as well as antibiotics. If she does have continued pain, which it becomes more localized towards the left lower abdominal quadrant, this may be related to the endometrioma and we will defer to PRODUCT SAFETY TECHNICAL ASSISTANT for further management of this. If she continues to do well overall. We will advance her diet as tolerated. 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
[2022-05-10 19:35] VITALS: BP 98/57
[2022-05-11] VITALS: BP 80/45
[2022-05-11] MEDS ORDERED: DOXYCYCLINE INJECTION 100 MG in NS (IVPB) 100 ML IV SCH ×2
[2022-05-11] MEDS: HYDROcodone/APAP 7.5 MG/325 MG (LORTAB, LORCET PLUS) TABLET PO PRN
[2022-05-11] MEDS: KETOROLAC 30 MG/ML VIAL IVP PRN (01:32)
[2022-05-11] MEDS: metroNIDAZOLE 500MG/100ML IVPB 100 ML IV SCH (02:50)
[2022-05-11 04:15] VITALS: BP 96/54
[2022-05-11] MEDS: D5 LR IV SOLUTION 1,000 ML IV SCH (06:37)
[2022-05-11 07:56] VITALS: BP 95/58
--- NOTE | 2022-05-11 07:57 | Progress Note ---
Standard Progress Note Progress Notes/Assess & Plan Date Seen by a Provider: May 11, 2022 Time Seen by a Provider: 07:54 Progress/Assessment & Plan This patient is without complaint except for being hungry. She reports that her pain is minimal and was well controlled through the night. She is requesting discharge home. Patient denies nausea or vomiting. She denies headache, she denies shortness of breath Vital Signs Date Time Temp Pulse Resp B/P (MAP) Pulse Ox O2 Delivery O2 Flow Rate FiO2 05/11/22 04:15 36.8 65 16 96/54 (68) 99 Room Air 05/11/22 00:00 36.3 75 16 80/45 (57) 100 Room Air 05/10/22 19:35 36.9 05/10/22 19:35 36.9 90 20 98/57 (71) Room Air 05/10/22 16:03 37.0 91 16 96/54 (68) 99 Room Air 05/10/22 14:00 100 Room Air 05/10/22 13:15 36.2 110 18 120/56 (77) 100 Room Air 05/10/22 12:55 36.5 109 18 113/61 99 Room Air 05/10/22 11:48 37.7 05/10/22 10:41 37.7 05/10/22 07:57 37.7 I & O 05/11/22 07:00 Intake Total 3450 ml Balance 3450 ml Vital signs are stable. Patient is afebrile. Abdomen is benign. There is minimal tenderness on palpation. There is no psoas sign there is no obturator sign there is no guarding or rigidity Extremities show no clubbing or cyanosis. There is no Homans' sign. Pelvic exam was deferred Assessment and plan Acute abdominal pain in a patient who has a history of endometriosis and has a left adnexal mass. The onset of her pain and the nature of her pain is more likely related to a gastroenteritis which is resolving and/or 2 effects of drug abuse which are resolving. Patient can follow-up in clinic for evaluation and follow-up in regard to the adnexal mass. Patient was given return instructions and will be allowed discharge home Final Diagnosis Adnexal mass/abdominal pain/drug abuse ABILIO YANCEY MD May 11, 2022 07:57
[2022-05-11] MEDS ORDERED: IBUPROFEN 800 MG (MOTRIN) TAB PO ONE (08:00)
== END 2022-05-11 08:55 | disposition home or self-care (01) | DRG 392 ==
LOC: EDUNIT# 07:21 → ER 07:23 → WS 12:13 → UNDODISIN 05-11 08:55
PROVIDERS: ADMIT Obstetrics & Gynecology; ATTEND Obstetrics & Gynecology
DX: K52.9 Noninfective gastroenteritis and colitis, unspecified (principal); F15.10 Other stimulant abuse, uncomplicated; N80.1 Endometriosis of ovary; F17.210 Nicotine dependence, cigarettes, uncomplicated; Z88.5 Allergy status to narcotic agent; Z88.0 Allergy status to penicillin; Z88.8 Allergy status to other drugs, medicaments and biological substances; Z91.040 Latex allergy status
CPT/HCPCS: 36415; 74176; 76830; 76856; 80053; 80306; 81000; 83690; 84703; 85007; 85025; 85027; 87077; 87088; 87186; 87491; 87591; G0378